=== PATIENT | male | born 1950 | race Caucasian/White ===

== ENCOUNTER 2019-02-28 09:10 | Day surgery (SDC) | payer OTHER, MEDICARE ==
[2019-02-25 12:35] VITALS: BMI 27.8
[2019-02-28] MEDS ORDERED: PROPOFOL 20 ML ONE (09:54)
[2019-02-28 10:44] VITALS: BP 108/56; PULSE 61; TEMP 50
== END 2019-02-28 10:45 | disposition home or self-care (01) ==
LOC: FASU-ENDO 09:10
PROVIDERS: ATTEND Internal Medicine Gastroenterology
PROC: 0DJD8ZZ Inspection of Lower Intestinal Tract, Via Natural or Artificial Opening Endoscopic (ICD-10-PCS; principal; 2019-02-28 09:57)
DX: Z86.010 Personal history of colon polyps (principal); K57.30 Diverticulosis of large intestine without perforation or abscess without bleeding

== ENCOUNTER 2022-01-30 19:00 | Inpatient (IN) | payer OTHER, MEDICARE ==
[2022-01-30 19:46] LABS: HEMATOCRIT 36.7 % (35.4-49); HEMOGLOBIN 13.1 G/dL (11.7-16.9); MCH 32.9 pg (25.7-33.7); MCHC 35.8 g/dl (32.0-35.9); MEAN CELL VOLUME 92.1 fl (80-96); MEAN PLT VOLUME 8.8 fl (7.5-11.1); PLATELET COUNT 200.5 10^3/uL (134-434); RBC 3.99 10^6/uL (4.00-5.60); RDW 13.2 % (11.9-15.9)
[2022-01-30] MEDS ORDERED: morphine CARPU-JECT 4 MG/1 ML DISP.SYRIN IVPUSH STA (19:47)
[2022-01-30] MEDS ORDERED: SODIUM CHLORIDE 1,000 ML ONE (19:47)
[2022-01-30] MEDS ORDERED: morphine SULFATE 4 MG/ML VIAL ONE (19:50)
[2022-01-30 20:02] LABS: ALBUMIN 3.9 g/dl (3.4-5.0); BILIRUBIN,TOTAL 0.7 mg/dl (0.2-1); CALCIUM 8.9 mg/dl (8.5-10); CREATININE 0.8 mg/dl (0.55-1.3); TOT PROT 6.6 g/dl (6.4-8.2)
[2022-01-30 20:37] LABS: PLATELET ESTIMATE ADEQUATE
[2022-01-30] MEDS ORDERED: CEFTRIAXONE 2,000 MG in DEXTROSE 5%-WATER - 50 ML IVPB ONE (22:48)
[2022-01-30] MEDS ORDERED: HYDROmorphone HCL CARPU-JECT 1 MG/1 ML DISP.SYRIN IVPUSH ONE (23:31)
[2022-01-30] MEDS ORDERED: HYDROmorphone HCL/PF 1 MG/ML VIAL ONE (23:33)
[2022-01-31] MEDS ORDERED: DEXTROSE 5%-NORMAL SALINE 1,000 ML IV SCH (00:45)
[2022-01-31] MEDS ORDERED: ONDANSETRON 4 MG/2 ML VIAL IVPUSH PRN (00:48)
[2022-01-31 02:04] LABS: INR 1.16 (0.83-1.09); PROTHROMBIN TIME (PATIENT) 13.4 SEC (9.7-13.0)
[2022-01-31 02:06] LABS: ACTIVATED PTT 29.8 SECONDS (25.2-36.5)
[2022-01-31] MEDS ORDERED: ATORVASTATIN CA 10 MG TABLET (FP) PO ONE (04:55)
[2022-01-31] MEDS ORDERED: MELATONIN 5 MG TABLETS PO PRN (04:58)
[2022-01-31] MEDS ORDERED: ACETAMINOPHEN INJECTION 100 ML IVPB ONE (06:14)
[2022-01-31] MEDS: ACETAMINOPHEN 1000 MG/100 ML BAG IVPB PRN ×2 (06:15→22:24)
[2022-01-31] MEDS ORDERED: morphine SULFATE 4 MG/ML VIAL IVPUSH PRN (07:25)
[2022-01-31 09:43] LABS: HEMATOCRIT 34.7 % (35.4-49); HEMOGLOBIN 12.5 G/dL (11.7-16.9); MCH 32.8 pg (25.7-33.7); MCHC 35.9 g/dl (32.0-35.9); MEAN CELL VOLUME 91.4 fl (80-96); MEAN PLT VOLUME 8.8 fl (7.5-11.1); RDW 13.5 % (11.9-15.9); WHITE BLOOD COUNT 10.3 10^3/uL (4.0-10.8)
[2022-01-31 09:57] LABS: ALBUMIN 3.3 g/dl (3.4-5.0); BILIRUBIN,TOTAL 0.7 mg/dl (0.2-1); CALCIUM 8.5 mg/dl (8.5-10); CREATININE 0.8 mg/dl (0.55-1.3); TOT PROT 5.8 g/dl (6.4-8.2)
[2022-01-31] MEDS ORDERED: FAMOTIDINE 40 MG TABLET PO SCH (10:00)
[2022-01-31] MEDS: SODIUM CHLORIDE 1,000 ML IV SCH (11:22)
[2022-01-31] MEDS: PANTOPRAZOLE SODIUM 40 MG VIAL IVPUSH SCH (11:22)
[2022-01-31 12:49] LABS: PLATELET ESTIMATE ADEQUATE
[2022-01-31 13:02] VITALS: BMI 28.6
[2022-01-31] MEDS: PIPERACILLIN/TAZOB 4.5 GM 4.5 GM in DEXTROSE 5%-WATER 100 ML IVPB SCH (17:52)
[2022-01-31] MEDS ORDERED: CEFTRIAXONE 1 GM in DEXTROSE 5%-WATER - 50 ML IVPB SCH (22:00)
[2022-01-31] MEDS: QUEtiapine FUMARATE 25 MG TABLET PO SCH (22:04)
[2022-02-01] MEDS: PIPERACILLIN/TAZOB 4.5 GM 4.5 GM in DEXTROSE 5%-WATER 100 ML IVPB SCH ×3 (02:43→17:47)
[2022-02-01 09:55] LABS: BASO % 0.6 % (0-2.0); HEMATOCRIT 36.7 % (35.4-49); HEMOGLOBIN 12.5 GM/dL (11.7-16.9); LYMPH % 18.6 % (8-40); MCH 30.8 pg (25.7-33.7); MCHC 34.1 g/dl (32.0-35.9); MEAN CELL VOLUME 90.2 fl (80-96); MEAN PLT VOLUME 9.3 fl (7.5-11.1); MONO % 10.3 % (3.8-10.2); NEUT % 69.5 % (42.8-82.8); PLATELET COUNT 197 10^3/uL (134-434); RBC 4.07 M/mm3 (4.00-5.60); RDW 12.5 % (11.9-15.9); WHITE BLOOD COUNT 7.8 K/mm3 (4.0-10.0)
[2022-02-01 10:10] LABS: CALCIUM 8.6 mg/dL (8.5-10.1)
[2022-02-01 10:11] LABS: BLOOD UREA NITROGEN 6.6 mg/dL (7-18)
[2022-02-01 10:14] LABS: CREATININE 0.7 mg/dL (0.55-1.3)
[2022-02-01] MEDS: PANTOPRAZOLE SODIUM 40 MG VIAL IVPUSH SCH (11:17)
[2022-02-01] MEDS: SODIUM CHLORIDE 1,000 ML IV SCH ×2 (11:18→23:30)
[2022-02-01] MEDS: QUEtiapine FUMARATE 25 MG TABLET PO SCH (21:36)
[2022-02-02] MEDS: PIPERACILLIN/TAZOB 4.5 GM 4.5 GM in DEXTROSE 5%-WATER 100 ML IVPB SCH ×3 (01:27→17:31)
[2022-02-02 10:42] LABS: BASO % 0.6 % (0-2.0); EOS % 1.7 % (0-4.5); HEMATOCRIT 34.9 % (35.4-49); HEMOGLOBIN 12.1 GM/dL (11.7-16.9); LYMPH % 21.1 % (8-40); MCH 31.2 pg (25.7-33.7); MCHC 34.6 g/dl (32.0-35.9); MEAN CELL VOLUME 90.1 fl (80-96); MONO % 10.3 % (3.8-10.2); NEUT % 66.3 % (42.8-82.8); PLATELET COUNT 189 10^3/uL (134-434); RBC 3.87 M/mm3 (4.00-5.60); RDW 12.8 % (11.9-15.9); WHITE BLOOD COUNT 7.5 K/mm3 (4.0-10.0)
[2022-02-02 11:01] LABS: CALCIUM 8.3 mg/dL (8.5-10.1)
[2022-02-02 11:02] LABS: ALBUMIN 2.9 g/dl (3.4-5.0); BLOOD UREA NITROGEN 4.4 mg/dL (7-18)
[2022-02-02 11:04] LABS: CREATININE 0.7 mg/dL (0.55-1.3)
[2022-02-02 11:06] LABS: BILIRUBIN,TOTAL 0.7 mg/dL (0.2-1); TOT PROT 5.7 g/dl (6.4-8.2)
[2022-02-02] MEDS: SODIUM CHLORIDE 1,000 ML IV SCH ×2 (11:20→17:32)
[2022-02-02] MEDS: PANTOPRAZOLE SODIUM 40 MG VIAL IVPUSH SCH (11:20)
[2022-02-02] MEDS: QUEtiapine FUMARATE 25 MG TABLET PO SCH (23:04)
[2022-02-03] MEDS: PIPERACILLIN/TAZOB 4.5 GM 4.5 GM in DEXTROSE 5%-WATER 100 ML IVPB SCH ×3 (01:51→17:22)
[2022-02-03 10:36] LABS: HEMATOCRIT 35.7 % (35.4-49); LYMPH % 21.9 % (8-40); MCH 30.1 pg (25.7-33.7); MCHC 33.7 g/dl (32.0-35.9); MEAN CELL VOLUME 89.5 fl (80-96); MEAN PLT VOLUME 8.9 fl (7.5-11.1); MONO % 10.8 % (3.8-10.2); NEUT % 64.3 % (42.8-82.8); PLATELET COUNT 203 10^3/uL (134-434); RBC 3.99 M/mm3 (4.00-5.60); RDW 12.8 % (11.9-15.9); WHITE BLOOD COUNT 6.1 K/mm3 (4.0-10.0)
[2022-02-03] MEDS: SODIUM CHLORIDE 1,000 ML IV SCH (10:50)
[2022-02-03] MEDS: PANTOPRAZOLE SODIUM 40 MG VIAL IVPUSH SCH (10:50)
[2022-02-03 10:57] LABS: BLOOD UREA NITROGEN 3.6 mg/dL (7-18)
[2022-02-03 11:00] LABS: CALCIUM 8.6 mg/dL (8.5-10.1); CREATININE 0.7 mg/dL (0.55-1.3)
[2022-02-03 11:02] LABS: TOT PROT 5.8 g/dl (6.4-8.2)
[2022-02-03 11:06] LABS: BILIRUBIN,TOTAL 0.4 mg/dL (0.2-1)
[2022-02-03 18:31] VITALS: BP 144/95; PULSE 100; RESP 19; TEMP 97.3
[2022-02-04] MEDS ORDERED: ATORVASTATIN CA 10 MG TABLET (FP) PO SCH (10:00)
== END 2022-02-03 20:10 | disposition home or self-care (01) | DRG 392 ==
LOC: FER 19:00 → J5S 01-31 10:35
PROVIDERS: ADMIT Internal Medicine
DX: K57.20 Diverticulitis of large intestine with perforation and abscess without bleeding (principal); K21.9 Gastro-esophageal reflux disease without esophagitis; I10 Essential (primary) hypertension; E78.5 Hyperlipidemia, unspecified; F39 Unspecified mood [affective] disorder
CPT/HCPCS: 0241U-QW; 36415; 71045-TC-FY; 74177-TC; 80048; 80053; 80061; 81003; 83036; 83605; 83735; 84443; 85025; 85610; 85730; 86850; 86900; 86901; 87040; 93005; 99285-25; Q9967

== ENCOUNTER 2022-04-29 04:22 | Inpatient (IN) | payer OTHER, MEDICARE ==
[2022-04-25 12:11] VITALS: BMI 27.1
[2022-04-29] MEDS ORDERED: ERTAPENEM SODIUM 1 GM in SODIUM CHLORIDE 50 ML IVPB ONE (07:00)
[2022-04-29] MEDS ORDERED: cefOXitin SODIUM 1 GM/10 ML PUSH (RESTRICTED TO ID) IVPUSH ONE (07:00)
[2022-04-29] MEDS ORDERED: ERTAPENEM SODIUM 1 GM VIAL ONE (07:04)
[2022-04-29] MEDS ORDERED: PROPOFOL 40 ML ONE (07:18)
[2022-04-29] MEDS ORDERED: LIDOCAINE HCL/PF 2% SDV 5ML VIAL ONE (07:18)
[2022-04-29] MEDS ORDERED: ROCURONIUM BROMIDE 50 MG/5 ML SYRINGE ONE (07:18)
[2022-04-29] MEDS ORDERED: FENTANYL CITRATE/PF 50 MCG/ML VIAL ONE ×3 (07:18→15:25)
[2022-04-29] MEDS ORDERED: SUCCINYLCHOLINE CHLORIDE 200 MG/10 ML SYRINGE ONE (07:19)
[2022-04-29] MEDS ORDERED: MIDAZOLAM HCL 2 MG/2 ML SINGLE DOSE VIAL ONE (07:19)
[2022-04-29] MEDS ORDERED: BUPIVACAINE HCL/PF 0.25% (2.5MG/ML) 10 ML VIAL ONE ×2 (08:12→09:32)
[2022-04-29] MEDS ORDERED: HEPARIN NA (PORCINE) 5,000 UNITS/ML 1ML VIAL ONE (08:19)
[2022-04-29] MEDS ORDERED: cefOXitin SODIUM 2 GM VIAL (RESTRICTED TO ID) IVPB ONE ×2 (08:19→08:35)
[2022-04-29] MEDS ORDERED: INDOCYANINE GREEN 25 MG/10 ML VIAL IVPUSH ONE ×2 (08:48→12:15)
[2022-04-29] MEDS ORDERED: METHYLENE BLUE 50 MG/10 ML AMPUL ONE (08:50)
[2022-04-29] MEDS ORDERED: BUPIVACAINE HCL/PF 0.25% (2.5MG/ML) 10 ML VIAL IJ ONE (09:30)
[2022-04-29] MEDS ORDERED: ACETAMINOPHEN INJECTION 100 ML IVPB ONE (10:43)
[2022-04-29] MEDS ORDERED: ONDANSETRON 4 MG/2 ML VIAL ONE (10:45)
[2022-04-29] MEDS ORDERED: KETOROLAC TROMETHAMINE 30 MG/1 ML VIAL ONE (10:45)
[2022-04-29] MEDS ORDERED: ONDANSETRON 4 MG/2 ML VIAL IVPUSH PRN ×2 (14:42→14:47)
[2022-04-29] MEDS ORDERED: HYDROmorphone HCl 2 MG/ML VIAL IVPUSH PRN (14:42)
[2022-04-29] MEDS ORDERED: PROMETHAZINE HCL 25 MG/1 ML VIAL IVPUSH PRN (14:42)
[2022-04-29] MEDS ORDERED: FENTANYL CITRATE/PF 50 MCG/ML VIAL IVPUSH PRN (14:42)
[2022-04-29] MEDS ORDERED: LACTATED RINGERS SOLUTION 1,000 ML IV SCH (14:45)
[2022-04-29] MEDS ORDERED: LACTATED RINGERS SOLUTION 1,000 ML/1,000 ML INFUS.BAG IV SCH (15:00)
[2022-04-29] MEDS ORDERED: cefOXitin SODIUM 1 GM/10 ML PUSH (RESTRICTED TO ID) IVPUSH SCH (15:00)
[2022-04-29] MEDS: FENTANYL CITRATE/PF 50 MCG/ML VIAL IVPUSH PRN ×2 (15:11→15:28)
[2022-04-29 16:11] LABS: BASO % 0.3 % (0-2.0); HEMATOCRIT 40.4 % (35.4-49); HEMOGLOBIN 13.2 GM/dL (11.7-16.9); LYMPH % 5.5 % (8-40); MCH 29.7 pg (25.7-33.7); MCHC 32.6 g/dl (32.0-35.9); MEAN CELL VOLUME 91.1 fl (80-96); MEAN PLT VOLUME 9.1 fl (7.5-11.1); MONO % 3.4 % (3.8-10.2); NEUT % 90.8 % (42.8-82.8); PLATELET COUNT 195 10^3/uL (134-434); RBC 4.43 M/mm3 (4.00-5.60); RDW 12.7 % (11.9-15.9); WHITE BLOOD COUNT 11.1 K/mm3 (4.0-10.0)
[2022-04-29] MEDS ORDERED: HYDROmorphone HCl 2 MG/ML VIAL ONE (16:11)
[2022-04-29] MEDS: HYDROmorphone HCl 2 MG/ML VIAL IVPUSH PRN ×2 (16:13→16:28)
[2022-04-29] MEDS: CEFOXITIN SODIUM 1 GM in SODIUM CHLORIDE 100 ML IVPB SCH ×2 (16:30→23:11)
[2022-04-29 16:36] LABS: CALCIUM 8.9 mg/dL (8.5-10.1)
[2022-04-29 16:37] LABS: BLOOD UREA NITROGEN 10.6 mg/dL (7-18)
[2022-04-29 16:40] LABS: CREATININE 0.8 mg/dL (0.55-1.3)
[2022-04-29] MEDS: ACETAMINOPHEN 1000 MG/100 ML BAG IVPB SCH (19:33)
[2022-04-29] MEDS: QUEtiapine FUMARATE 25 MG TABLET PO SCH (21:48)
[2022-04-29] MEDS: CHLORHEXIDINE GLUCONATE 4% CLEANSER FOR DECOLONIZATION TP SCH (21:48)
[2022-04-29] MEDS: MUPIROCIN 2% TOPICAL OINTMENT FOR DECOLONIZATION NS SCH (21:48)
[2022-04-29] MEDS: ATORVASTATIN CA 10 MG TABLET (FP) PO SCH (21:48)
[2022-04-29] MEDS: oxyCODONE HCL 5 MG TABLET PO PRN (22:39)
[2022-04-30] MEDS: MAG HYDROX/AL HYDROX/SIMETH 30 ML UNIT-DOSE CUP PO PRN ×2 (01:48→09:39)
[2022-04-30] MEDS: KETOROLAC TROMETHAMINE 15 MG/ML VIAL IVPUSH SCH ×2 (01:48→09:37)
[2022-04-30] MEDS: ACETAMINOPHEN 1000 MG/100 ML BAG IVPB SCH ×3 (03:00→13:04)
[2022-04-30 08:53] LABS: HEMATOCRIT 36.3 % (35.4-49); HEMOGLOBIN 11.8 GM/dL (11.7-16.9); MCH 29.7 pg (25.7-33.7); MCHC 32.6 g/dl (32.0-35.9); MEAN PLT VOLUME 9.7 fl (7.5-11.1); PLATELET COUNT 196 10^3/uL (134-434); RBC 3.98 M/mm3 (4.00-5.60); RDW 12.7 % (11.9-15.9); WHITE BLOOD COUNT 12.5 K/mm3 (4.0-10.0)
[2022-04-30 09:11] LABS: CALCIUM 8.7 mg/dL (8.5-10.1)
[2022-04-30 09:15] LABS: CREATININE 0.7 mg/dL (0.55-1.3)
[2022-04-30] MEDS: PANTOPRAZOLE SODIUM 40 MG VIAL IVPUSH SCH (09:38)
[2022-04-30] MEDS: ENOXAPARIN NA (PORCINE) 40 MG/0.4 ML DISP.SYRIN SQ SCH (09:39)
[2022-04-30] MEDS: MUPIROCIN 2% TOPICAL OINTMENT FOR DECOLONIZATION NS SCH ×2 (13:05→21:02)
[2022-04-30] MEDS: QUEtiapine FUMARATE 25 MG TABLET PO SCH (21:01)
[2022-04-30] MEDS: oxyCODONE HCL 5 MG TABLET PO PRN (21:01)
[2022-04-30] MEDS: ATORVASTATIN CA 10 MG TABLET (FP) PO SCH (21:02)
[2022-04-30] MEDS: CHLORHEXIDINE GLUCONATE 4% CLEANSER FOR DECOLONIZATION TP SCH (21:02)
[2022-05-01] MEDS: oxyCODONE HCL 5 MG TABLET PO PRN ×2 (02:27→19:43)
[2022-05-01] MEDS: ACETAMINOPHEN 500 MG TABLET (FP) PO SCH ×3 (06:46→21:55)
[2022-05-01 08:40] LABS: HEMATOCRIT 34.4 % (35.4-49); HEMOGLOBIN 11.3 GM/dL (11.7-16.9); MCHC 32.9 g/dl (32.0-35.9); MEAN CELL VOLUME 91.1 fl (80-96); MEAN PLT VOLUME 9.5 fl (7.5-11.1); PLATELET COUNT 150 10^3/uL (134-434); RBC 3.78 M/mm3 (4.00-5.60); RDW 12.2 % (11.9-15.9); WHITE BLOOD COUNT 8.8 K/mm3 (4.0-10.0)
[2022-05-01] MEDS: MUPIROCIN 2% TOPICAL OINTMENT FOR DECOLONIZATION NS SCH ×2 (09:49→21:56)
[2022-05-01] MEDS: ENOXAPARIN NA (PORCINE) 40 MG/0.4 ML DISP.SYRIN SQ SCH (09:49)
[2022-05-01] MEDS: PANTOPRAZOLE SODIUM 40 MG VIAL IVPUSH SCH (09:50)
[2022-05-01 09:51] LABS: CALCIUM 8.6 mg/dL (8.5-10.1)
[2022-05-01 09:52] LABS: ALBUMIN 3.1 g/dl (3.4-5.0); BLOOD UREA NITROGEN 7.5 mg/dL (7-18)
[2022-05-01 09:55] LABS: CREATININE 0.6 mg/dL (0.55-1.3)
[2022-05-01 09:57] LABS: BILIRUBIN,TOTAL 0.4 mg/dL (0.2-1); TOT PROT 5.6 g/dl (6.4-8.2)
[2022-05-01] MEDS: QUEtiapine FUMARATE 25 MG TABLET PO SCH (21:56)
[2022-05-01] MEDS: ATORVASTATIN CA 10 MG TABLET (FP) PO SCH (21:56)
[2022-05-01] MEDS: CHLORHEXIDINE GLUCONATE 4% CLEANSER FOR DECOLONIZATION TP SCH (21:56)
[2022-05-02] MEDS ORDERED: ONDANSETRON 4 MG/2 ML VIAL IVPUSH PRN (00:14)
[2022-05-02] MEDS ORDERED: oxyCODONE HCL 5 MG TABLET PO PRN (00:14)
[2022-05-02] MEDS ORDERED: MAG HYDROX/AL HYDROX/SIMETH 30 ML UNIT-DOSE CUP PO PRN (00:14)
[2022-05-02 00:27] VITALS: RESP 18
[2022-05-02] MEDS: ACETAMINOPHEN 500 MG TABLET (FP) PO SCH ×2 (06:09→13:39)
[2022-05-02] MEDS ORDERED: ENOXAPARIN NA (PORCINE) 40 MG/0.4 ML DISP.SYRIN SQ SCH (10:00)
[2022-05-02] MEDS ORDERED: MUPIROCIN 2% TOPICAL OINTMENT FOR DECOLONIZATION NS SCH (10:00)
[2022-05-02] MEDS ORDERED: PANTOPRAZOLE SODIUM 40 MG VIAL IVPUSH SCH (10:00)
[2022-05-02 12:24] LABS: BASO % 0.6 % (0-2.0); EOS % 1.4 % (0-4.5); HEMATOCRIT 36.9 % (35.4-49); HEMOGLOBIN 12.3 GM/dL (11.7-16.9); LYMPH % 24.5 % (8-40); MCHC 33.4 g/dl (32.0-35.9); MEAN CELL VOLUME 89.9 fl (80-96); MEAN PLT VOLUME 9.5 fl (7.5-11.1); MONO % 12.6 % (3.8-10.2); NEUT % 60.9 % (42.8-82.8); PLATELET COUNT 190 10^3/uL (134-434); RDW 12.7 % (11.9-15.9); WHITE BLOOD COUNT 7.1 K/mm3 (4.0-10.0)
[2022-05-02 12:52] LABS: CALCIUM 8.8 mg/dL (8.5-10.1)
[2022-05-02 12:53] LABS: ALBUMIN 3.1 g/dl (3.4-5.0); BLOOD UREA NITROGEN 7.9 mg/dL (7-18); MAGNESIUM 1.9 mg/dL (1.8-2.4)
[2022-05-02 12:56] LABS: CREATININE 0.6 mg/dL (0.55-1.3)
[2022-05-02 12:57] LABS: BILIRUBIN,TOTAL 0.6 mg/dL (0.2-1)
[2022-05-02 12:58] LABS: TOT PROT 5.9 g/dl (6.4-8.2)
[2022-05-02 13:44] VITALS: BP 129/74; PULSE 74; TEMP 98.5
[2022-05-02] MEDS ORDERED: CHLORHEXIDINE GLUCONATE 4% CLEANSER FOR DECOLONIZATION TP SCH (22:00)
[2022-05-02] MEDS ORDERED: ATORVASTATIN CA 10 MG TABLET (FP) PO SCH (22:00)
[2022-05-02] MEDS ORDERED: QUEtiapine FUMARATE 25 MG TABLET PO SCH (22:00)
== END 2022-05-02 15:12 | disposition home or self-care (01) | DRG 331 ==
LOC: J2C 04:22 → JICU 17:18 → J6S 05-02 00:11
PROVIDERS: ADMIT Surgery; ATTEND Nurse Practitioner Family
PROC: 8E0W4CZ Robotic Assisted Procedure of Trunk Region, Percutaneous Endoscopic Approach (ICD-10-PCS; 2022-04-29)
PROC: 0DBN4ZZ Excision of Sigmoid Colon, Percutaneous Endoscopic Approach (ICD-10-PCS; principal; 2022-04-29 08:00)
PROC: 0T788DZ Dilation of Bilateral Ureters with Intraluminal Device, Via Natural or Artificial Opening Endoscopic (ICD-10-PCS; 2022-04-29 08:00)
DX: K57.32 Diverticulitis of large intestine without perforation or abscess without bleeding (principal); K21.9 Gastro-esophageal reflux disease without esophagitis; E78.5 Hyperlipidemia, unspecified; N40.0 Benign prostatic hyperplasia without lower urinary tract symptoms
CPT/HCPCS: 36415; 80048; 80053; 83735; 85025; 85027; 86140; 87081; 88302-TC; 88307-TC; 94010; 94760; 97116-GP; 97161-GP; J1644; Q9968

== ENCOUNTER 2024-02-15 09:14 | Day surgery (SDC) | payer OTHER, MEDICARE ==
[2024-02-11 09:39] VITALS: BMI 27.3
[2024-02-15 12:44] VITALS: TEMP 96.9
[2024-02-15 12:51] VITALS: BP 110/69; PULSE 67; RESP 17
== END 2024-02-15 11:40 | disposition home or self-care (01) ==
LOC: FASU-ENDO 09:14
PROVIDERS: ATTEND Internal Medicine Gastroenterology
PROC: 0DB98ZX Excision of Duodenum, Via Natural or Artificial Opening Endoscopic, Diagnostic (ICD-10-PCS; 2024-02-15)
PROC: 0DB78ZX Excision of Stomach, Pylorus, Via Natural or Artificial Opening Endoscopic, Diagnostic (ICD-10-PCS; 2024-02-15)
PROC: 0DB68ZX Excision of Stomach, Via Natural or Artificial Opening Endoscopic, Diagnostic (ICD-10-PCS; 2024-02-15)
PROC: 0DB38ZX Excision of Lower Esophagus, Via Natural or Artificial Opening Endoscopic, Diagnostic (ICD-10-PCS; 2024-02-15)
PROC: 0DJD8ZZ Inspection of Lower Intestinal Tract, Via Natural or Artificial Opening Endoscopic (ICD-10-PCS; principal; 2024-02-15 10:25)
DX: Z12.11 Encounter for screening for malignant neoplasm of colon (principal); K57.30 Diverticulosis of large intestine without perforation or abscess without bleeding; K21.00 Gastro-esophageal reflux disease with esophagitis, without bleeding; K29.50 Unspecified chronic gastritis without bleeding; K31.7 Polyp of stomach and duodenum
CPT/HCPCS: 43239; G0121; 88305-TC; 88342-TC